=== PATIENT | female | born 1960 | race Native Hawaiian/Other Pacific Islander ===

== ENCOUNTER 2018-10-05 04:26 | Emergency (ER) | payer OTHER ==
[~2018-10-05] VITALS: Ht 162.6 cm; Wt 80.7 kg
[~2018-10-05 04:26] MED LIST: FLEXERIL PO; HYDROCODON-ACE1 EAC7 PO; NOHOMEMEDICATIONS; NORCO 5-325 TA1 EACH PO; TRIAMCINOLONE A80 G2 TOP; UNKNOWN BP MED; ZESTORETIC 20-1 EACH PO
[2018-10-05] MEDS ORDERED: ZOFRAN ODT4 MG PO (05:51)
[2018-10-05] MEDS ORDERED: OSELB75 PO (05:51)
[2018-10-05] MEDS ORDERED: TUSSIONEX PENN115 ML PO (05:51)
[2018-10-05 05:55] LABS: INFLUENZA B ANTIGEN None Detected (None Detect)
[2018-10-05 06:02] VITALS: BP 135/76
== END 2018-10-05 06:02 | disposition home or self-care (01) ==
LOC: M.ERS 04:26
PROVIDERS: Emergency Medicine
DX: J11.1 Influenza due to unidentified influenza virus with other respiratory manifestations (principal); I10 Essential (primary) hypertension; M19.90 Unspecified osteoarthritis, unspecified site; Z98.890 Other specified postprocedural states

== ENCOUNTER 2019-04-18 09:47 | Emergency (ER) | payer OTHER ==
[~2019-04-18] VITALS: Ht 162.6 cm; Wt 79.4 kg
[~2019-04-18 09:47] MED LIST changes: +OSELB75 PO; +TUSSIONEX PENN115 ML PO; +ZOFRAN ODT4 MG PO
[2019-04-18] MEDS ORDERED: NORVASC5 MG PO (09:56)
[2019-04-18] MEDS ORDERED: ACETAMINOPHEN-1 EAC1 PO (11:33)
[2019-04-18] MEDS ORDERED: ROBAXIN 750 MG750 MG PO (11:33)
[2019-04-18] MEDS ORDERED: NAPROSYN500 MG PO (11:34)
[2019-04-18 11:46] VITALS: BP 200/100
--- NOTE | 2019-04-18 17:20 | EKG ---
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 04/18/19 1719 [id number] Rick Caro MD, FACC /EPI
== END 2019-04-18 11:47 | disposition home or self-care (01) ==
LOC: M.ERS 09:47
DX: S16.1XXA Strain of muscle, fascia and tendon at neck level, initial encounter (principal); R51 Headache; R07.89 Other chest pain; I10 Essential (primary) hypertension; M19.90 Unspecified osteoarthritis, unspecified site; Z87.01 Personal history of pneumonia (recurrent); Z98.890 Other specified postprocedural states; W22.8XXA Striking against or struck by other objects, initial encounter; Y93.89 Activity, other specified; Y92.89 Other specified places as the place of occurrence of the external cause; Y99.8 Other external cause status

== ENCOUNTER 2020-05-28 17:09 | Emergency (ER) | payer OTHER, BC ==
[~2020-05-28] VITALS: Ht 162.6 cm; Wt 77.1 kg
[~2020-05-28 17:09] MED LIST changes: +ACETAMINOPHEN-1 EAC1 PO; +NAPROSYN500 MG PO; +NORVASC5 MG PO; +ROBAXIN 750 MG750 MG PO
[2020-05-28] MEDS ORDERED: LISINOPRIL2.5 MG PO (17:16)
[2020-05-28 17:35] LABS: ABSOLUTE BASOPHILS 0.1 thou/uL (0.0-0.2); ABSOLUTE EOSINOPHILS 0.2 thou/uL (0.0-0.7); ABSOLUTE LYMPHOCYTES 2.2 thou/uL (0.8-5.3); ABSOLUTE MONOCYTES 0.5 thou/uL (0.0-1.2); BASOPHILS 0.7 %; EOSINOPHILS 3.5 %; HEMATOCRIT 39.7 % (37.0-47.0); HEMOGLOBIN 13.6 gm/dL (12.0-15.0); LYMPHOCYTES 31.2 %; MCH 29.5 pg (26.0-34.0); MCHC 34.3 g/dL (28.0-37.0); MONOCYTES 7.2 %; MPV 8.1 fl. (7.2-11.1); NUCLEATED RBCS 0 /100WBC; PLATELET COUNT* 301 thou/uL (150-400); POLYS 57.4 %; RBC 4.61 mil/uL (4.20-5.00); RDW-CV 14.1 % (10.5-14.5); WBC 6.9 thou/uL (4.0-11.0)
[2020-05-28 17:43] LABS: CALCIUM 9.1 mg/dL (8.5-10.1); POTASSIUM 3.3 mmol/L (3.5-5.1)
[2020-05-28 17:44] LABS: APTT 28.5 Seconds (25.0-31.3); PROTIME 10.6 Seconds (9.20-11.50)
[2020-05-28 17:55] LABS: ALBUMIN 3.9 g/dL (3.4-5.0); CK-MB MASS 3.1 ng/mL (<0.5-3.6); MAGNESIUM 2.2 mg/dL (1.8-2.4); TOTAL BILIRUBIN 0.6 mg/dL (<0.1-1.0); TOTAL PROTEIN 7.4 g/dL (6.4-8.2)
[2020-05-28 18:23] VITALS: BP 121/73
--- NOTE | 2020-05-29 14:31 | EKG ---
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
== END 2020-05-28 18:24 | disposition home or self-care (01) ==
LOC: M.ERS 17:09
PROVIDERS: Family Medicine
DX: R53.1 Weakness (principal); I10 Essential (primary) hypertension; M19.90 Unspecified osteoarthritis, unspecified site; Z98.890 Other specified postprocedural states

== ENCOUNTER 2020-09-04 12:04 | Emergency (ER) | payer OTHER, BC ==
[~2020-09-04] VITALS: Ht 162.6 cm; Wt 76.2 kg
[~2020-09-04 12:04] MED LIST changes: +LISINOPRIL2.5 MG PO
[2020-09-04] MEDS ORDERED: ASA81BEC PO (12:17)
[2020-09-04] MEDS ORDERED: NORCO 5-325 TA1 EAC2 PO (15:17)
[2020-09-04] MEDS ORDERED: FLEXERIL PO (15:17)
[2020-09-04 15:25] VITALS: BP 155/86
== END 2020-09-04 15:28 | disposition home or self-care (01) ==
LOC: M.ERS 12:04
DX: R51.9 Headache, unspecified (principal); I10 Essential (primary) hypertension; M19.90 Unspecified osteoarthritis, unspecified site; Z98.890 Other specified postprocedural states

== ENCOUNTER 2021-10-18 19:45 | Emergency (ER) | payer OTHER, BC ==
[~2021-10-18] VITALS: Ht 162.6 cm; Wt 74.8 kg
[~2021-10-18 19:45] MED LIST changes: +ASA81BEC PO; +NORCO 5-325 TA1 EAC2 PO
[2021-10-18] MEDS ORDERED: HYDROCHLOROTH12.5 M2 PO (20:00)
[2021-10-18] MEDS ORDERED: TOPROL XL50 MG (20:00)
[2021-10-18 21:12] VITALS: BP 145/70
--- NOTE | 2021-10-19 10:36 | EKG ---
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 : 1960 Requested By: Kecia Garza Order Number: [id number] MD: Curtis Jimenez Measurements Intervals [place] Rate: 72 P: 45 MS: 138 QRS: -19 QRSD: 95 T: 38 QT: 407 QTc: 446 Interpretive Statements Sinus rhythm Borderline left axis deviation Baseline wander in lead(s) V1,V5 Compared to ECG 05/28/2020 17:14:42 T-wave abnormality no longer present Electronically Signed On 10-19-2021 10:36:23 DIRECTOR CHILD by Curtis Jimenez [email or web address] <ELECTRONICALLY SIGNED> By: Curtis Jimenez MD, [facility] 10/19/21 1036 [id number] Curtis Jimenez MD, [facility] /EPI
== END 2021-10-18 21:12 | disposition home or self-care (01) ==
LOC: M.ERS 19:45
DX: U07.1 COVID-19 (principal); I10 Essential (primary) hypertension; M19.90 Unspecified osteoarthritis, unspecified site; Z98.890 Other specified postprocedural states; Z79.899 Other long term (current) drug therapy; Z79.82 Long term (current) use of aspirin